=== PATIENT | male | born 1995 | race Caucasian/White ===

== ENCOUNTER → 2018-02-04 | Outpatient (CLI) | payer OTHER ==
[~2018-02-04] MED LIST: AMOX250S6 PO; DEXAMETHASONE PO; FLUO40CA PO; HYDR473S50 PO; IBP800T PO; TETRACAINE LOLLIPOPS PO
--- NOTE | 2018-02-04 14:53 | Diagnostic Imaging Report ---
INDICATION: Chest pain. PA and lateral chest obtained at 0106 hours p.m. Heart and mediastinal silhouette are normal in appearance. The lungs are clear. There is no pneumothorax or pleural fluid. IMPRESSION: Negative chest. Dictated by: Dictated on workstation # [id number]
== END ==
LOC: CARD 12:30
PROVIDERS: ATTEND Nurse Practitioner Family
DX: R07.89 Other chest pain (principal)
CPT/HCPCS: 71046; 93005